=== PATIENT | male | born 1935 | race Caucasian/White ===

== ENCOUNTER 2017-04-10 20:26 | Emergency (ER) | payer MEDICARE, OTHER ==
[~2017-04-10] VITALS: Ht 167.6 cm; Wt 95.0 kg
[~2017-04-10 20:26] MED LIST: ATEN50TA PO; LISI-587 PO; LOVA20TA PO; METF500 PO; MOBI15TA PO; RANI150T PO
[2017-04-10 20:28] VITALS: BP 215/101; PULSE 116; RESP 18; TEMP 99; O2SAT 96
--- NOTE | 2017-04-10 20:51 | PD ---
Physical Exam Time Seen by Provider: 20:48 Narrative 82yo M c/o high blood pressure. +chest pressure, no pain. Denies SOB, blurred vision, [place], vomiting. Takes lisinopril in the a.m. Is suppose to take Atenolol at bedtime, but has not taken it ion 20 days because a new doctor has not prescribed it for him. Patient seen in triage. VS reviewed. Awaiting bed placement. Data Data Last Documented VS Vital Signs Date Time Temp Pulse Resp B/P Pulse Ox O2 Delivery O2 Flow Rate FiO2 04/10/17 20:28 99.0 116 18 215/101 96 Room Air MDM Supervised Visit with SITA: Marcia Calles Apr 10, 2017 20:51
--- NOTE | 2017-04-10 21:06 | PD ---
HPI Chief Complaint: Hypertension Time Seen by Provider: 21:06 Travel History International Travel<30 days: No Contact w/Intl Traveler<30days: No Traveled to known affect area: No History of Present Illness HPI 82-year-old male with a history of hypertension, hyperlipidemia and diabetes presents to the emergency department for evaluation of elevated blood pressure with chest pressure and dizziness. The patient states that yesterday he was not feeling well and went to [facility] to check his blood pressure and noted it to be elevated. States that again today he was feeling unwell with dizziness and some chest pressure and went to [facility] and his blood pressure was again elevated. States that he's had intermittent dizziness and chest pressure today with some shortness of breath. He is not currently experiencing either of these symptoms. He states that he is changing doctors and was not prescribed a refill of his atenolol and has been out of it for about one month. States he is supposed to be taking atenolol and lisinopril but has only been on lisinopril. He denies any history of heart disease or HI. Denies any fever, chills, nausea, vomiting, cough or cold symptoms, abdominal pain, swelling of the extremities. No other complaints. PFSH Past Medical History Diabetes: Yes Patient Takes Glucophage: Yes Diminished Hearing: No Hypertension: Yes Tetanus Vaccination: Unknown Influenza Vaccination: No Past Surgical History Surgical History: No Previous Surgery Social History Alcohol Use: No Tobacco Use: No Substance Use: No Allergies-Medications (Allergen,Severity, Reaction): Coded Allergies: No Known Allergies (Unverified , 04/10/17) Reported Meds & Prescriptions Reported Meds & Active Scripts Active Atenolol 50 Mg Tab 50 Mg PO DAILY Must repeat nonfasting labs and kidney ultrasound myron! Zestoretic (Lisinopril-Hctz) 20-25 Mg Tab 1 Tab PO DAILY Must repeat nonfasting labs and kidney ultrasound myron! Lovastatin 20 Mg Tab 20 Mg PO HS Ranitidine (Ranitidine HCl) 150 Mg Tab 1 Tab PO BID PRN Glucophage (Metformin HCl) 500 Mg Tab 2 Tab PO BID 2 tab AM / 1 tab PM Mobic (Meloxicam) 15 Mg Tab 15 Mg PO DAILY PRN Review of Systems Except as stated in HPI: all other systems reviewed are Neg Physical Exam Narrative GENERAL: Well-nourished and well-developed pleasant male patient in no acute distress who is nontoxic appearing. SKIN: Warm and dry. HEAD: Normocephalic and atraumatic. EYES: No injection, drainage, or hyphema noted. PERRLA. EOMI. ENT: No nasal drainage noted. Oropharynx is clear. NECK: Supple and the trachea is midline. CARDIOVASCULAR: Regular rate and rhythm. RESPIRATORY: Breath sounds are equal bilaterally with no accessory muscle use, wheezing, rhonchi, or crackles. GASTROINTESTINAL: Abdomen is soft, non-tender, and nondistended. MUSCULOSKELETAL: No obvious deformities, swelling, cyanosis, or ecchymosis is present throughout the upper and lower extremities. Patient has full range of motion without any signs of neurovascular compromise. Strength 5/5 upper and lower extremities equal bilaterally. NEUROLOGICAL: Awake, alert, and oriented. Normal speech and gait. Cranial nerves are grossly intact. Data Data Last Documented VS Vital Signs Date Time Temp Pulse Resp B/P Pulse Ox O2 Delivery O2 Flow Rate FiO2 04/10/17 22:32 174/79 04/10/17 21:32 72 18 99 Room Air 04/10/17 20:28 99.0 Orders Electrocardiogram (04/10/17 21:04) Ckmb (Isoenzyme) Profile (04/10/17 21:04) Complete Blood Count With Diff (04/10/17 21:04) Comprehensive Metabolic Panel (04/10/17 21:04) Magnesium (Mg) (04/10/17 21:04) Prothrombin Time / Inr (Pt) (04/10/17 21:04) Act Partial Throm Time (Ptt) (04/10/17 21:04) Troponin I (04/10/17 21:04) Chest, Single Ap (04/10/17 21:04) Ecg Monitoring (04/10/17 21:04) Bilateral Bp Monitoring (04/10/17 21:04) Iv Access Insert/Monitor (04/10/17 21:04) Oximetry (04/10/17 21:04) Aspirin Chew (Aspirin Chew) (04/10/17 21:15) Sodium Chloride 0.9% Flush (Ns Flush) (04/10/17 21:15) Labetalol Inj (Trandate Inj) (04/10/17 21:15) Labs Laboratory Tests Test 04/10/17 21:09 White Blood Count 11.5 TH/MM3 Red Blood Count 4.17 MIL/MM3 Hemoglobin 13.7 GM/DL Hematocrit 39.7 % Mean Corpuscular Volume 95.1 FL Mean Corpuscular Hemoglobin 32.8 PG Mean Corpuscular Hemoglobin 34.5 % Concent Red Cell Distribution Width 12.1 % Platelet Count 199 TH/MM3 Mean Platelet Volume 8.5 FL Neutrophils (%) (Auto) 50.0 % Lymphocytes (%) (Auto) 28.4 % Monocytes (%) (Auto) 18.7 % Eosinophils (%) (Auto) 2.0 % Basophils (%) (Auto) 0.9 % Neutrophils # (Auto) 5.7 TH/MM3 Lymphocytes # (Auto) 3.3 TH/MM3 Monocytes # (Auto) 2.1 TH/MM3 Eosinophils # (Auto) 0.2 TH/MM3 Basophils # (Auto) 0.1 TH/MM3 CBC Comment DIFF FINAL Differential Comment Prothrombin Time 10.6 SEC Prothromb Time International 1.0 RATIO Ratio Activated Partial 27.2 SEC Thromboplast Time Sodium Level 137 MEQ/L Potassium Level 3.7 MEQ/L Chloride Level 103 MEQ/L Carbon Dioxide Level 25.0 MEQ/L Anion Gap 9 MEQ/L Blood Urea Nitrogen 22 MG/DL Creatinine 1.27 MG/DL Estimat Glomerular Filtration 54 ML/MIN Rate Random Glucose 116 MG/DL Calcium Level 8.7 MG/DL Magnesium Level 1.5 MG/DL Total Bilirubin 0.5 MG/DL Aspartate Amino Transf 26 U/L (AST/SGOT) Alanine Aminotransferase 28 U/L (ALT/SGPT) Alkaline Phosphatase 75 U/L Total Creatine Kinase 69 U/L Troponin I LESS THAN 0.02 NG/ML Total Protein 7.5 GM/DL Albumin 3.7 GM/DL [facility] Medical Decision Making Medical Screen Exam Complete: Yes Emergency Medical Condition: Yes Differential Diagnosis Hypertensive urgency versus uncontrolled hypertension versus ACS versus pleurisy Narrative Course 82-year-old male presents to the emergency department for evaluation of elevated blood pressure, chest pressure and dizziness. Patient is afebrile. He is hypertensive with a blood pressure 215/101 and tachycardic with a heart rate of 116 bpm. Physical examination is unremarkable. He has been out of his atenolol for almost a month. IV access is obtained, labs have been drawn and sent. Patient is placed on cardiac telemetry and pulse oximetry monitoring. Patient is administered labetalol 5 mg IV. EKG shows sinus rhythm with no acute ST elevations or depressions. CBC is unremarkable. CMP is unremarkable. Troponin is less than 0.02. Chest x-ray is unremarkable. Patient's blood pressure has improved to 140/75 and his heart rate is now 72 bpm. Patient has remained asymptomatic while here in the emergency department. I did discuss with the patient and his daughter that because he was experiencing chest pressure earlier today that I recommend he be admitted to chest pain center for repeat cardiac enzymes, EKGs and possible stress testing. The patient and his daughter declined admission to chest pain center at this time although I did discuss with them that he could be having a cardiac event. Patient and his daughter verbalize understanding and agreement with discharge to home and follow-up with his primary care this as scheduled. Patient will be given a refill of atenolol 50 mg daily until he can see his primary care doctor. Diagnosis Primary Impression: Uncontrolled hypertension Additional Impression: Sensation of chest pressure Referrals: Primary Care Physician Patient Instructions: Chest Pain (ED), General Instructions, Hypertension (ED) Additional Instructions: You were experiencing chest pressure and we recommended you stay in our Chest Pain Center for repeat cardiac enzymes, EKGs and possible stress testing. You elected to be discharged home. You can return to the emergency department at any time and we urge you to return for any worsening of symptoms such as chest pain, difficulty breathing, shortness of breath, syncope, dizziness. Take medications as prescribed. Follow-up with your Primary Care Physician. Med/Other Pt SpecificInfo: Prescription(s) given Scripts Atenolol 50 Mg Tab50 Mg PO DAILY 7 Days Ref 0 Prov:Odette Modoy MD 04/10/17 Disposition: 01 DISCHARGE HOME Condition: Stable Marcia Sierra Apr 10, 2017 21:06
[2017-04-10 21:15] VITALS: O2SAT 99
[2017-04-10] MEDS ORDERED: ASPIRIN 81 MG CHEW TAB PO ONE (21:15)
[2017-04-10] MEDS ORDERED: LABETALOL HCL 100 MG/20 ML VIAL IV PUSH ONE (21:15)
[2017-04-10] MEDS ORDERED: SODIUM CHLORIDE 0.9% FLUSH 10 ML FLUSH IVF PRN (21:15)
[2017-04-10 21:30] LABS: AUTOMATED NEUTROPHIL # 5.7 TH/MM3 (1.8-7.7); BASOPHIL # 0.1 TH/MM3 (0-0.2); BASOPHIL % 0.9 % (0.0-2.0); EOSINOPHIL # 0.2 TH/MM3 (0-0.4); HEMATOCRIT 39.7 % (39.0-51.0); HEMO FLAGS DIFF FINAL; LYMPH % 28.4 % (9.0-44.0); LYMPHOCYTE # 3.3 TH/MM3 (1.0-4.8); MEAN CELL VOLUME 95.1 FL (80.0-100.0); MEAN CORPUSCULAR HEMOGLOBIN 32.8 PG (27.0-34.0); MEAN CORPUSCULAR HGB CONC 34.5 % (32.0-36.0); MONO % 18.7 % (0.0-8.0); PLATELET COUNT 199 TH/MM3 (150-450); RED BLOOD COUNT 4.17 MIL/MM3 (4.50-5.90); RED CELL DISTRIBUTION WIDTH 12.1 % (11.6-17.2); WHITE BLOOD COUNT 11.5 TH/MM3 (4.0-11.0)
[2017-04-10 21:32] VITALS: BP 140/75; PULSE 72; RESP 18; O2SAT 99
--- NOTE | 2017-04-10 21:38 | RADRPT ---
EXAM DATE/TIME: 04/10/2017 21:20 [facility] COMPARISON: No previous studies available for comparison. INDICATIONS : Chest pain. MEDICAL HISTORY : None. SURGICAL HISTORY : None. ENCOUNTER: Initial ACUITY: 1 day PAIN SCORE: 5/10 LOCATION: Bilateral chest FINDINGS: A single view of the chest demonstrates the lungs to be symmetrically aerated without evidence of mas s, infiltrate or effusion. The cardiomediastinal contours are unremarkable. Osseous structures are intact. CONCLUSION: No acute disease. Carlos Schulz MD on April 10, 2017 at 21:35 Board Certified Radiologist. This report was verified electronically.
[2017-04-10 21:45] LABS: APTT (PATIENT) 27.2 SEC (24.3-30.1); PROTHROMBIN TIME - PATIENT 10.6 SEC (9.8-11.6)
[2017-04-10 21:52] LABS: ALT (GPT) 28 U/L (12-78)
[2017-04-10 21:59] LABS: ALKALINE PHOSPHATASE 75 U/L (45-117); ANION GAP 9 MEQ/L (5-15); AST (GOT) 26 U/L (15-37); BLOOD UREA NITROGEN 22 MG/DL (7-18); CHLORIDE 103 MEQ/L (98-107); CREATINE KINASE 69 U/L (39-308); GLOMERULAR FILTRATION RATE 54 ML/MIN (>89); MAGNESIUM 1.5 MG/DL (1.5-2.5); POTASSIUM 3.7 MEQ/L (3.5-5.1); SODIUM (NA) 137 MEQ/L (136-145); TOTAL BILIRUBIN ADULT 0.5 MG/DL (0.2-1.0)
[2017-04-10 22:32] VITALS: BP 174/79
[2017-04-10] MEDS ORDERED: ATEN50TA PO (22:37)
--- NOTE | 2017-04-11 16:53 | EKG ---
Date Performed: 04/10/2017 Time Performed: 21:03:24 PTAGE: 82 years EKG: Sinus rhythm NORMAL ECG NO PREVIOUS TRACING DOCTOR: Jean Marie Mcclure Interpretating Date/Time 04/11/2017 16:49:06
== END 2017-04-10 23:27 | disposition home or self-care (01) ==
LOC: NEPE 20:26
DX: R07.89 Other chest pain (principal); I10 Essential (primary) hypertension; R42 Dizziness and giddiness; R00.0 Tachycardia, unspecified; E11.9 Type 2 diabetes mellitus without complications; E78.5 Hyperlipidemia, unspecified; Z79.899 Other long term (current) drug therapy
CPT/HCPCS: 71010; 80053; 82550; 83735; 84484; 85025; 85610; 85730; 93005; 96374